=== PATIENT | female | born 2000 | race Hispanic/Latino ===

== ENCOUNTER 2021-04-21 06:01 | Emergency (ER) | payer BC ==
[~2021-04-21] VITALS: Ht 152.4 cm; Wt 56.7 kg
[2021-04-21] MEDS ORDERED: KETOROLAC TROMETHAMINE 30 MG/ML VIAL IM STA (06:04)
== END 2021-04-21 07:36 | disposition home or self-care (01) ==
LOC: ER 06:33
DX: S16.1XXA Strain of muscle, fascia and tendon at neck level, initial encounter (principal); R07.81 Pleurodynia
CPT/HCPCS: 71101; 99283; J1885